=== PATIENT | male | born 1965 | race Caucasian/White ===

== ENCOUNTER 2016-11-07 14:49 | Emergency (ER) | payer BC, OTHER ==
[~2016-11-07] VITALS: Ht 177.8 cm; Wt 80.0 kg
[~2016-11-07 14:49] MED LIST: GUAI1TAB55 PO; SIMV20TA2 PO
[2016-11-07 14:51] VITALS: TEMP 37.5; Ht 177.8 cm; Wt 80.0 kg
[2016-11-07] MEDS ORDERED: FLUT0.15 NAE (15:16)
[2016-11-07] MEDS ORDERED: ATOR-22 PO (15:16)
[2016-11-07] MEDS ORDERED: SODIUM CHLORIDE 0.9% 1000ML 1,000 ML IV STA (15:21)
[2016-11-07] MEDS ORDERED: ALBUT/IPRATROP 3MG/0.5MG NEB 3 ML VIAL INH STA (15:21)
[2016-11-07] MEDS ORDERED: IBUPROFEN 800 MG TAB PO STA (15:21)
[2016-11-07 16:00] LABS: BASO % 0.2 %; BASO ABS # 0.01 K/uL (0-0.2); COMPLETE YES; IG% 0.2 %; LYMPH % 27.8 %; LYMPH ABS # 1.65 K/uL (1.2-3.4); MEAN CELL VOLUME 90.5 fL (80-100); MEAN CORPUSCULAR HEMOGLOBIN 31.7 pg (25-34); MEAN PLATELET VOLUME 9.4 fL (7.4-10.4); MONO % 11.1 %; NEUT % 60.7 %; PLATELET COUNT 161 K/uL (130-400); RED BLOOD COUNT 4.42 M/uL (4.7-6.1); WHITE BLOOD COUNT 5.93 K/uL (4.8-10.8)
[2016-11-07 16:05] LABS: MANUAL MICROSCOPIC REQUIRED? NO; REVIEW REQ? NO; URINE APPEARANCE CLEAR (CLEAR); URINE COLOR DK YELLOW; URINE NITRITE NEG (NEG); URINE PH 6.5 (4.5-7.5); URINE SPECIFIC GRAVITY 1.029 (1.000-1.030); UROBILINOGEN NEG (NEG); ZZUR CULT IF INDIC CLEAN CATCH NO
[2016-11-07 16:06] LABS: URINE BILIRUBIN NEG (NEG)
[2016-11-07 16:16] LABS: BUN/CREATININE RATIO 14.1 (10-20); CALCIUM 8.3 mg/dl (8.5-10.1); CREATININE 1.1 mg/dl (0.60-1.40); POTASSIUM 4.2 mmol/L (3.5-5.1)
[2016-11-07 16:19] LABS: ALB/GLOB RATIO 1.1 (0.9-2)
--- NOTE | 2016-11-07 16:23 | DIAGNOSTIC IMAGING REPORT ---
CHEST 2 VIEWS ROUTINE HISTORY: cough, fever COMPARISON: Chest 03/22/2014. FINDINGS: The lungs are clear. Cardiac silhouette is normal in size. No pleural effusions. No pneumothorax. Left-sided dual-chamber pacemaker. IMPRESSION: No acute process. Electronically signed by: Miguel Ángel Stern M.D. 11/07/2016 4:22 PM Dictated Date/Time: 11/07/2016 4:21 PM
[2016-11-07] MEDS ORDERED: AMOX875T PO (16:40)
[2016-11-07] MEDS ORDERED: PRED50TA PO (16:40)
--- NOTE | 2016-11-07 16:41 | EMERGENCY ROOM VISIT NOTE ---
History First contact with patient: 15:12 Chief Complaint: ILLNESS Stated Complaint: CONGESTION,CHILLS,COUGH,VOMITING History of Present Illness The patient is a 51 year old male who presents to the Emergency Room with complaints of cough 1 week. The patient states that he has had a nonproductive cough for the past week. He states that he has had chills, but has not checked his temperature. He states that he has had a mild headache, but this worsened significantly when he has severe coughing. He has been coughing so hard that he becomes nauseous and vomits. The symptoms have worsened over the past 2 days. The patient has a pacemaker but denies any other past medical history. He denies any neck pain or stiffness, abdominal pain, chest pain or shortness of breath. The patient is a smoker. Review of Systems A complete 10 point review of systems was reviewed with the patient with pertinent positives and negatives as per history of present illness. All else were negative. Social History Smoking Status: Current Every Day Smoker Current/Historical Medications Scheduled Amoxicillin & Pot Clavulanate (Augmentin 875-125 mg), 1 TAB PO BID Atorvastatin (Lipitor), 20 MG PO DAILY Fluticasone Propionate (Nasal) (Flonase Allergy Relief), 1 SPRAY NATE DAILY Prednisone (Prednisone), 50 MG PO DAILY Allergies Coded Allergies: No Known Allergies (Unverified , 11/07/16) Physical Exam Vital Signs Date Time Temp Pulse Resp B/P (MAP) Pulse Ox O2 Delivery O2 Flow Rate FiO2 11/07/16 17:07 65 20 130/75 98 11/07/16 14:51 37.5 64 20 130/76 98 Physical Exam VITALS: Vitals are noted on the nurse's note and reviewed by myself. Vital signs stable. GENERAL: This is a 51-year-old male, in no acute distress, holding an emesis bag , nondiaphoretic, well-developed well-nourished. SKIN: Capillary reflex less than 2 seconds. HEENT: Normocephalic. PERRLA. EOMI. Nares patent. Mucous membranes moist. Neck is supple without nuchal rigidity. Mild tenderness over the right maxillary sinus. HEART: Regular rate and rhythm without murmurs gallops or rubs. LUNGS: Mild expiratory wheezes heard throughout all lung guadarrama. No retractions or accessory muscle use. ABDOMEN: Soft, nontender to palpation. MUSCULOSKELETAL: No gross musculoskeletal defects. No pedal edema. No calf tenderness. NEURO: Patient was alert and oriented to person place and time. Medical Decision & Procedures ER Provider Diagnostic Interpretation: CHEST 2 VIEWS ROUTINE HISTORY: cough, fever COMPARISON: Chest 03/22/2014. FINDINGS: The lungs are clear. Cardiac silhouette is normal in size. No pleural effusions. No pneumothorax. Left-sided dual-chamber pacemaker. IMPRESSION: No acute process. Laboratory Results 11/07/16 15:40 Red Blood Count 4.42, Mean Corpuscular Volume 90.5, Mean Corpuscular Hemoglobin 31.7, Mean Corpuscular Hemoglobin Concent 35.0, Mean Platelet Volume 9.4, Neutrophils (%) (Auto) 60.7, Lymphocytes (%) (Auto) 27.8, Monocytes (%) (Auto) 11.1, Eosinophils (%) (Auto) 0.0, Basophils (%) (Auto) 0.2, Neutrophils # (Auto ) 3.60, Lymphocytes # (Auto) 1.65, Monocytes # (Auto) 0.66, Eosinophils # (Auto ) 0.00, Basophils # (Auto) 0.01 11/07/16 15:40 Test 11/07/16 15:40 11/07/16 15:45 White Blood Count 5.93 K/uL (4.8-10.8) Red Blood Count 4.42 M/uL (4.7-6.1) Hemoglobin 14.0 g/dL (14.0-18.0) Hematocrit 40.0 % (42-52) Mean Corpuscular Volume 90.5 fL (80-100) Mean Corpuscular Hemoglobin 31.7 pg (25-34) Mean Corpuscular Hemoglobin Concent 35.0 g/dl (32-36) Platelet Count 161 K/uL (130-400) Mean Platelet Volume 9.4 fL (7.4-10.4) Neutrophils (%) (Auto) 60.7 % Lymphocytes (%) (Auto) 27.8 % Monocytes (%) (Auto) 11.1 % Eosinophils (%) (Auto) 0.0 % Basophils (%) (Auto) 0.2 % Neutrophils # (Auto) 3.60 K/uL (1.4-6.5) Lymphocytes # (Auto) 1.65 K/uL (1.2-3.4) Monocytes # (Auto) 0.66 K/uL (0.11-0.59) Eosinophils # (Auto) 0.00 K/uL (0-0.5) Basophils # (Auto) 0.01 K/uL (0-0.2) RDW Standard Deviation 47.5 fL (36.4-46.3) RDW Coefficient of Variation 14.1 % (11.5-14.5) Immature Granulocyte % (Auto) 0.2 % Immature Granulocyte # (Auto) 0.01 K/uL (0.00-0.02) Anion Gap 8.0 mmol/L (3-11) Est Creatinine Clear Calc Drug Dose 82.0 ml/min Estimated GFR () 89.6 Estimated GFR (Non- 77.3 BUN/Creatinine Ratio 14.1 (10-20) Calcium Level 8.3 mg/dl (8.5-10.1) Total Bilirubin 0.3 mg/dl (0.2-1) Aspartate Amino Transf (AST/SGOT) 29 U/L (15-37) Alanine Aminotransferase (ALT/SGPT) 25 U/L (12-78) Alkaline Phosphatase 67 U/L (45-117) Total Protein 7.5 gm/dl (6.4-8.2) Albumin 3.9 gm/dl (3.4-5.0) Globulin 3.6 gm/dl (2.5-4.0) Albumin/Globulin Ratio 1.1 (0.9-2) Monoscreen NEG (NEG) Urine Color DK YELLOW Urine Appearance CLEAR (CLEAR) Urine pH 6.5 (4.5-7.5) Urine Specific [place] 1.029 (1.000-1.030) Urine Protein TRACE (NEG) Urine Glucose (UA) NEG (NEG) Urine Ketones TRACE (NEG) Urine Occult Blood TRACE (NEG) Urine Nitrite NEG (NEG) Urine Bilirubin NEG (NEG) Urine Urobilinogen NEG (NEG) Urine Leukocyte Esterase NEG (NEG) Urine WBC (Auto) 1-5 /hpf (0-5) Urine RBC (Auto) 5-10 /hpf (0-4) Urine Hyaline Casts (Auto) 1-5 /lpf (0-5) Urine Epithelial Cells (Auto) 10-20 /lpf (0-5) Urine Bacteria (Auto) NEG (NEG) Medications Administered Medications (Trade) Dose Ordered Sig/Emerson Route Start Time Stop Time Status Last Admin Dose Admin Sodium Chloride 1,000 ml @ 999 mls/hr Q1H1M STAT IV 11/07/16 15:21 11/07/16 16:21 DC 11/07/16 15:43 999 MLS/HR Albuterol/ Ipratropium (Duoneb) 3 ml NOW STAT INH 11/07/16 15:21 11/07/16 15:23 DC 11/07/16 15:43 3 ML Ibuprofen (Motrin Tab) 800 mg NOW STAT PO 11/07/16 15:21 11/07/16 15:23 DC 11/07/16 15:44 800 MG Amoxicillin/ Clavulanate Potassium (Augmentin 875MG Home Pack) 1 homepack UD ONCE PO 11/07/16 16:45 11/07/16 16:46 DC 11/07/16 16:56 1 HOMEPACK Prednisone (PredniSONE TAB) 60 mg NOW STAT PO 11/07/16 16:37 11/07/16 16:40 DC 11/07/16 16:55 60 MG Albuterol (Ventolin Hfa Inhaler) 2 puffs NOW ONCE INH 11/07/16 16:45 11/07/16 16:46 DC 11/07/16 16:55 2 PUFFS Hydrocodone Bit/ Homatropine Methylb (Hycodan Elix Homepack 5/1.5MG/ 5ML) 1 homepack UD ONCE PO 11/07/16 16:45 11/07/16 16:46 DC 11/07/16 16:56 1 HOMEPACK ED Course The patient was evaluated as above. Labs were drawn and IV access was obtained. Patient was medicated with 1 L normal saline solution, a DuoNeb treatment and 800 mg ibuprofen. Patient was reevaluated and did have some improvement in his symptoms. He was given home packs of Augmentin, Hycodan cough syrup and a Ventolin inhaler. He was given an initial dose of prednisone. Discharge instructions were reviewed with the patient. The patient verbalized understanding of my assessment and treatment plan and was discharged home in good condition. Medical Decision Differential diagnosis includes pneumonia, upper respiratory infection, sinusitis, electrolyte abnormality, among others. The patient is a 51-year-old male who presents today complaining of cough and flulike symptoms. Labs revealed no leukocytosis, anemia or concerning electrolyte abnormalities. Monospot was negative. Chest x-ray was performed and showed no acute findings. The patient did feel better after a DuoNeb treatment. He does have mild tenderness of the maxillary sinus and I do feel it is reasonable to treat him for sinusitis. He will be placed on Augmentin and prednisone. He was given a Ventolin inhaler and Hycodan cough syrup for symptomatic use. He was instructed to follow-up with his primary care provider this week or return for worsening symptoms. Blood pressure screening: Patient was found to have normal blood pressure on screening and does not require follow-up. Medication reconciliation: I attest that I have personally reviewed the patient 's current medication list. Based on the patient's presentation and work up, I feel the patient is stable for outpatient treatment. The patient was educated to return to the emergency department for any worsening of their current condition or new/concerning symptoms. He will follow up with his primary care provider. Impression Primary Impression: Upper respiratory infection Departure Information Dispostion Home / Self-Care Condition GOOD Prescriptions Prednisone (Prednisone) 50 Mg Tab 50 MG PO DAILY for 4 Days, #4 TAB Prov: Latonya Cuello PA-C 11/07/16 Amoxicillin & Pot Clavulanate (Augmentin 875-125 mg) 1 Tab Tab 1 TAB PO BID for 7 Days, #14 TAB Prov: Latonya Cuello PA-C 11/07/16 Referrals No Doctor, Assigned (PCP) Patient Instructions My [facility] Additional Instructions You were prescribed Augmentin to be taken twice daily for a total of 7 days. This is an antibiotic. All antibiotics have the potential to cause diarrhea. Stop this medication and contact a medical provider if you were to develop any significant adverse side effects including: wheezing, shortness of breath, passing out, vomiting, or a diffuse rash. Always take antibiotics as directed and COMPLETE the ENTIRE course regardless of the improvement of your symptoms. You have been prescribed Prednisone. This is a steroid which will help decrease your inflammation. Take this medicine as prescribed. Take the ENTIRE 4 day course. It is best to take steroids early in the morning as PM dosing can affect your sleeping patterns. Use the Hycodan cough syrup as needed for cough. This is a narcotic medication. You may not drive and should not drink alcohol while taking this medication. Use the Ventolin inhaler as needed for cough/shortness of breath. For pain/fever control, you can use the following [id number] medicines ( if >12 yo): - Regular strength (325mg/tab) Tylenol (acetaminophen) 2 tabs every 4-6 hours as needed. Do not exceed 12 tablets in a 24 hour period. Avoid taking more than 4 grams (4000 mg) of Tylenol per day. This includes any other sources of acetaminophen you may take on a regular basis. - Regular strength (200 mg/tab) Advil (ibuprofen) 1-2 tabs every 4-6 hours as needed. Do not exceed a dose of 3200 mg per day. Rest and drink plenty of fluids. Follow-up with your primary care provider this week for a recheck. Problem Qualifiers Primary Impression: Upper respiratory infection URI type: unspecified URI Qualified Codes: J06.9 - Acute upper respiratory infection, unspecified
[2016-11-07] MEDS ORDERED: ALBUTEROL HFA 8 GM INHALER INH ONE (16:45)
[2016-11-07] MEDS ORDERED: AMOXICIL/CLAVU 875MG HOME PACK PO ONE (16:45)
[2016-11-07] MEDS ORDERED: HYCODAN 60ML BOTTLE HOMEPACK PO ONE (16:45)
[2016-11-07 17:07] VITALS: BP 130/75; PULSE 65; O2SAT 98
== END 2016-11-07 17:08 | disposition home or self-care (01) ==
LOC: C.EDB 14:50 → C.EDA 17:08
DX: J06.9 Acute upper respiratory infection, unspecified (principal); F17.200 Nicotine dependence, unspecified, uncomplicated

== ENCOUNTER 2016-11-09 19:37 | Emergency (ER) | payer BC ==
[~2016-11-09] VITALS: Ht 177.8 cm; Wt 79.9 kg
[~2016-11-09 19:37] MED LIST changes: +AMOX875T PO; +ATOR-22 PO; +FLUT0.15 NAE; -GUAI1TAB55 PO; +PRED50TA PO; -SIMV20TA2 PO
[2016-11-09 19:42] VITALS: TEMP 36.3; Ht 177.8 cm; Wt 79.9 kg
[2016-11-09] MEDS ORDERED: PSEUDOEPHEDRINE HCL 30 MG TAB PO STA (20:54)
[2016-11-09] MEDS ORDERED: PSEU30TA20 PO (20:57)
[2016-11-09] MEDS ORDERED: ONDA4TAB10 SL (20:57)
[2016-11-09] MEDS ORDERED: ONDANSETRON HOME PACK 4MG OD TAB PO ONE (21:00)
[2016-11-09 21:19] VITALS: BP 159/74; PULSE 65; O2SAT 98
--- NOTE | 2016-11-09 21:20 | EMERGENCY ROOM VISIT NOTE ---
History Report prepared by Jayde: Briana Bajwa Under the Supervision of: Dr. Lucian Garcia M.D. First contact with patient: 20:08 Chief Complaint: ILLNESS Stated Complaint: SINUS INFECTION,HEADACHE,COUGH,UPSET STOMACH History of Present Illness The patient is a 51 year old male who presents to the Emergency Room with complaints of constant sinus symptoms beginning one week prior to arrival. The patient was seen in the ED 2 days ago and has not seen improvement since this visit. The patient was given Augmentin, Prednisone, a cough suppressant and an inhaler. He has taken these medications for the past 2 days with no improvement of his sinus pressure or his symptoms. He is experiencing a cough, shortness of breath, nausea and a headache. He denies wheezing or sore throat. 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 Review of Systems See HPI for pertinent positives & negatives. A total of 10 systems reviewed and were otherwise negative. Past Medical & Surgical Medical Problems: (1) pace maker Family History Cancer Diabetes mellitus FH: heart disease FHx: gallbladder disease FHx: lung disease Hypertension Kidney disease Kidney stones Seizures Social History Smoking Status: Current Every Day Smoker Alcohol Use: occasionally Marital Status: Housing Status: lives with family Occupation Status: employed Current/Historical Medications Scheduled Amoxicillin & Pot Clavulanate (Augmentin 875-125 mg), 1 TAB PO BID Atorvastatin (Lipitor), 20 MG PO DAILY Fluticasone Propionate (Nasal) (Flonase Allergy Relief), 1 SPRAY NATE DAILY Ondasetron Odt (Zofran Odt), 4 MG SL Q6H Prednisone (Prednisone), 50 MG PO DAILY Pseudoephedrine (Sudafed), 60 MG PO Q6H Allergies Coded Allergies: No Known Allergies (Unverified , 11/07/16) Physical Exam Vital Signs Date Time Temp Pulse Resp B/P (MAP) Pulse Ox O2 Delivery O2 Flow Rate FiO2 11/09/16 21:19 65 16 159/74 98 Room Air 11/09/16 19:42 36.3 68 18 105/69 98 Room Air Physical Exam GENERAL: Patient is in no acute distress. HEENT: No acute trauma, normocephalic atraumatic, mucous membranes moist, no nasal congestion, no scleral icterus, no sinus tenderness with percussion, no throat erythema or exudate. NECK: No stridor, no adenopathy, no meningismus, trachea is midline. LUNGS: Clear to auscultation bilaterally, no wheeze, no rhonchi, breath sounds equal. HEART: Without murmurs gallops or rubs, regular rate and rhythm. ABDOMEN: Soft, nontender, bowel sounds positive, no hernias, no peritonitis. EXTREMITIES: No cyanosis or edema, full range of motion of all the joints without pain or difficulty, no signs for acute trauma. NEUROLOGIC: Oriented x 3, no acute motor or sensory deficits, no focal weakness. SKIN: No rash, no jaundice, no diaphoresis. Medical Decision & Procedures Medications Administered Medications (Trade) Dose Ordered Sig/Emerson Route Start Time Stop Time Status Last Admin Dose Admin Pseudoephedrine HCl (Sudafed Tab) 60 mg NOW STAT PO 11/09/16 20:54 11/09/16 20:56 DC 11/09/16 21:18 60 MG Ondansetron HCl (ZOFRAN ODT 4MG Home Pack) 1 homepack UD ONCE PO 11/09/16 21:00 11/09/16 21:01 DC 11/09/16 21:18 1 HOMEPACK ED Course 2046: The patient was evaluated in room B12. A complete history and physical exam was performed. 2053: Sudafed Tab 60 mg PO. 2099: Zofran ODT 4 mg Home Pack 1 homepack PO. 2102: Reevaluated the patient. Discussed results and discharge instructions: He verbalized understanding and agreement. The patient is ready for discharge. Medical Decision The patient is a 51 year old male who presents to the ED with complaints of sinus pressure. Differential diagnoses considered include URI, bronchitis, pneumonia, pharyngitis, bronchospasm. The patient presents with ongoing sinus congestion and cough. He has been on Augmentin, prednisone, albuterol and Hycodan for a few days, he has not had significant relief. There is been no fever. He has at times notice some nausea. No one-sided weakness. He has not fallen or struck his head. There is no neck pain or stiffness. The patient has a normal exam, he is afebrile. There are no neurological findings, there is no meningismus. I reviewed his workup from a few days ago, the workup was benign. I talked to the patient at length. We have decided to try some Sudafed for congestion and to help with sinus drainage. I will give some Zofran for nausea. The patient was given Sudafed here orally and oral Zofran, he is being discharged on the same to continue his other medications. If worsening, he can return. Medication Reconciliation: I attest that I have personally reviewed the patient' s current medication list. Blood Pressure Screening: Patient was found to have normal blood pressure on screening and does not require follow-up. Impression Primary Impression: Cough Additional Impression: Sinusitis Scribe Attestation The scribe's documentation has been prepared under my direction and personally reviewed by me in its entirety. I confirm that the note above accurately reflects all work, treatment, procedures, and medical decision making performed by me. Departure Information Dispostion Home / Self-Care Prescriptions Pseudoephedrine (Sudafed) 30 Mg Tab 60 MG PO Q6H for 4 Days, #32 TAB Prov: Lucian Garcia M.D. 11/09/16 Ondasetron Odt (ZOFRAN ODT) 4 Mg Tab 4 MG SL Q6H for Nausea, #6 TAB Prov: Lucian Garcia M.D. 11/09/16 Referrals No Doctor, Assigned (PCP) Forms HOME CARE DOCUMENTATION FORM, IMPORTANT VISIT INFORMATION Patient Instructions My [facility] Additional Instructions continue all your other meds prescribed use sudafed every 6 hours for the congestion use zofran 1 tab every 6 hours for nausea rest fluids return for vomiting or fever Problem Qualifiers
== END 2016-11-09 21:21 | disposition home or self-care (01) ==
LOC: C.EDB 19:38
DX: R05 Cough (principal); J32.9 Chronic sinusitis, unspecified; F17.200 Nicotine dependence, unspecified, uncomplicated; Z95.0 Presence of cardiac pacemaker; Z79.899 Other long term (current) drug therapy; Z80.9 Family history of malignant neoplasm, unspecified; Z83.3 Family history of diabetes mellitus; Z82.49 Family history of ischemic heart disease and other diseases of the circulatory system; Z83.79 Family history of other diseases of the digestive system; Z84.1 Family history of disorders of kidney and ureter; Z82.0 Family history of epilepsy and other diseases of the nervous system